=== PATIENT | female | born 1935 | race Caucasian/White ===

== ENCOUNTER 2016-07-29 15:23 | Inpatient (IN) ==
--- NOTE | 2016-07-29 15:33 | Emergency Department Note ---
Disposition Clinical Impression: CVA (cerebral vascular accident), Frail elderly, History of hypertension, Osteopenia, Anemia, Kyphosis Disposition: Admitted As Inpatient Referrals: NO,PCP [Primary Care Provider] - Forms: ED Satisfaction Letter General Adult HPI - General Chief complaint: ED Neuro Symptoms/Deficit Stated complaint: "Abnormal MRI" Time Seen by Provider: 07/29/16 15:30 - History of Present Illness HPI Narrative: 80-year-old female reports to the ED with concerns for abnormal MRI brain suggestive of stroke. The patient reportedly has been being evaluated by her neurologist and was seen earlier in the week, an outpatient MRI of the brain was obtained today and showed changes so the patient was sent to the ED. The family reports that the patient has had a chronic shuffling gait and some imbalance in general for a significant period of time. They thought perhaps she had Parkinson's disease. There is no history of acute unilateral numbness or weakness of the arms or legs slurred speech or confusion. No history of convulsions trauma or fever. There is no history of chest pain shortness of breath and out pain vomiting diarrhea or acute injury secondary to fall although the patient has fallen a few times. There is no history of syncope leg swelling or pain or coughing up blood the patient is not anticoagulated at this time. They report the patient had a recent urinary tract infection. The patient still has some urinary frequency. There is no history of chest palpitations or pain or swelling of the extremities. - Related Data Allergies Allergy/AdvReac Type Severity Reaction Status Date / Time No Known Allergies Allergy Verified 07/29/16 15:32 All systems ED: reviewed and negative except as stated. Past Medical History - Past Medical History Medical history: Reports: hypertension Psychiatric history: Reports: no psych history - Social History Smoking Status: Never smoker Smokeless Tobacco Status: No Alcohol use: Reports: none Drug use: Reports: none Physical Exam - General Limitations: no limitations General appearance: alert, in no apparent distress - Head Head exam: atraumatic, normocephalic, normal inspection - Eye Eye exam: Present: normal appearance, PERRL, EOMI. Absent: scleral icterus, conjunctival injection, miosis, mydriasis - ENT ENT exam: normal exam, normal oropharynx, mucous membranes moist, TM's normal bilaterally, normal external ear exam - Neck Neck exam: Present: normal inspection, full ROM, trachea midline. Absent: tenderness - Chest Chest inspection: Present: symmetric chest wall rise. Absent: tenderness - Respiratory Respiratory exam: Present: normal lung sounds bilaterally. Absent: respiratory distress, wheezes, stridor, accessory muscle use, prolonged expiratory phase - Cardiovascular Cardiovascular exam: Present: regular rate, normal rhythm, normal heart sounds - Abdominal Exam Abdominal exam: Present: soft, Non-Tender, normal bowel sounds. Absent: tenderness, distention, guarding, rebound, rigidity - Rectal Exam Tile Shader present during exam: Yes (Female nursing present) Rectal exam: Present: normal rectal tone. Absent: decreased rectal tone, black stool, bloody stool, fecal impaction - Female Tile Shader present during exam: Yes - Extremities Exam Extremities exam: Present: normal inspection, full ROM, normal capillary refill. Absent: tenderness, pedal edema, joint swelling, calf tenderness - Expanded Lower Extremity Exam Lower leg exam: Absent: Homans' sign Neurovascular/Tendon exam: Present: normal capillary refill. Absent: motor deficit, sensory deficit, tendon deficit, extremity cold to touch, pallor - Back Exam Back exam: Present: normal inspection, full ROM. Absent: tenderness, CVA tenderness (R), CVA tenderness (L), vertebral tenderness - Neurological Exam Neurological exam: Present: alert, oriented X3, CN II-XII intact. Absent: motor sensory deficit - Psychiatric Psychiatric exam: Present: normal affect, normal mood - Skin Skin exam: Present: warm, dry, intact, normal color. Absent: rash, cyanosis, diaphoresis, erythema, pallor, mottled Course Vital Signs Temperature 97.6 F 07/29/16 15:55 Pulse Rate 93 07/29/16 15:55 Respiratory Rate 18 07/29/16 15:55 Blood Pressure 133/56 07/29/16 15:55 O2 Sat by Pulse Oximetry 96 07/29/16 15:55 Temperature 97.6 F 07/29/16 15:55 Pulse Rate 93 07/29/16 15:55 Respiratory Rate 18 07/29/16 15:55 Blood Pressure 133/56 07/29/16 15:55 O2 Sat by Pulse Oximetry 96 07/29/16 15:55 Oxygen Delivery Oxygen Delivery Nasal Cannula Medical Decision Making - MDM Narrative Medical decision making narrative: The patient appears to have had a subacute cerebral infarct. Aspirin was ordered in the ED. The patient's hemoglobin seems to be very low at 7.2. No previous available for comparison. Rectal exam shows no evidence of jayesh blood or blackened material. Fecal Hemoccult was sent. EKG nonacute. The patient appears to be stable. Based on the patient's apparent subacuteacute/ CVA significant anemia, I thought it would be appropriate to admit the patient to the hospital. I discussed the case with the hospitalist on-call who has accepted the patient to their care. The patient is currently stable. - Lab Data Lab results reviewed: Yes I reviewed the patient's lab results. Result diagrams: 07/29/16 15:46 07/29/16 15:46 Lab Results 07/29/16 07/29/16 07/29/16 Range/Units 15:46 15:46 15:46 WBC 5.8 (4.3-11.1) K/mcL RBC 3.01 L (3.82-4.97) M/mcL Hgb 7.2 L (11.5-15.4) g/dL Hct 24.4 L (35.3-44.9) % MCV 81.1 L (83.0-100.0) fL MCH 23.9 L (28.0-33.3) pg MCHC 29.5 L (31.6-35.5) g/dL RDW 17.0 H (11.5-14.5) % Plt Count 379 (140-400) K/mcL MPV 9.1 L (9.4-12.4) fL Immature Gran % 0.2 (0-4) % Seg Neutrophils % 51.7 % Lymphocytes % 38.6 % Monocytes % 7.4 % Eosinophils % 1.2 % Basophils % 0.9 % Neutrophils # 3.0 (1.6-8.9) K/mcL Lymphocytes # 2.2 (0.6-4.6) K/mcL Monocytes # 0.4 (0.0-1.3) K/mcL Eosinophils # 0.1 (0.0-0.6) K/mcL Basophils # 0.1 (0.0-0.2) K/mcL PT 10.1 (9.4-12.1) Seconds INR 0.9 Sodium 136 (136-145) mEq/L Potassium 3.7 (3.5-4.5) mEq/L Chloride 105 (98-109) mEq/L Carbon Dioxide 23 (19-29) mEq/L BUN 21 H (7-20) mg/dL Creatinine 0.81 (0.57-1.11) mg/dL Est GFR ( Amer) > 60 (> 60) Est GFR (Non-Af Amer) > 60 (> 60) BUN/Creatinine Ratio 26 (6-26) Glucose 94 (70-99) mg/dL Calculated Osmolality 285 (280-300) Calcium 8.1 L (8.6-10.8) mg/dL Magnesium 1.6 (1.6-2.6) mg/dL Total Bilirubin 0.4 (0.2-1.2) mg/dL Direct Bilirubin 0.2 (0.0-0.5) mg/dL Indirect Bilirubin 0.2 (0.0-1.2) mg/dL AST 13 (5-34) Units/L ALT < 6 (0-55) Units/L Alkaline Phosphatase 121 (38-126) Units/L Troponin I (0-0.03) ng/mL Serum Total Protein 6.4 (6.0-8.3) g/dL Albumin 2.8 L (3.5-5.0) g/dL Globulin 3.6 H (2.4-3.5) g/dL Albumin/Globulin Ratio 0.8 L (1.1-2.2) 07/29/16 Range/Units 15:46 WBC (4.3-11.1) K/mcL RBC (3.82-4.97) M/mcL Hgb (11.5-15.4) g/dL Hct (35.3-44.9) % MCV (83.0-100.0) fL MCH (28.0-33.3) pg MCHC (31.6-35.5) g/dL RDW (11.5-14.5) % Plt Count (140-400) K/mcL MPV (9.4-12.4) fL Immature Gran % (0-4) % Seg Neutrophils % % Lymphocytes % % Monocytes % % Eosinophils % % Basophils % % Neutrophils # (1.6-8.9) K/mcL Lymphocytes # (0.6-4.6) K/mcL Monocytes # (0.0-1.3) K/mcL Eosinophils # (0.0-0.6) K/mcL Basophils # (0.0-0.2) K/mcL PT (9.4-12.1) Seconds INR Sodium (136-145) mEq/L Potassium (3.5-4.5) mEq/L Chloride (98-109) mEq/L Carbon Dioxide (19-29) mEq/L BUN (7-20) mg/dL Creatinine (0.57-1.11) mg/dL Est GFR ( Amer) (> 60) Est GFR (Non-Af Amer) (> 60) BUN/Creatinine Ratio (6-26) Glucose (70-99) mg/dL Calculated Osmolality (280-300) Calcium (8.6-10.8) mg/dL Magnesium (1.6-2.6) mg/dL Total Bilirubin (0.2-1.2) mg/dL Direct Bilirubin (0.0-0.5) mg/dL Indirect Bilirubin (0.0-1.2) mg/dL AST (5-34) Units/L ALT (0-55) Units/L Alkaline Phosphatase (38-126) Units/L Troponin I 0.00 (0-0.03) ng/mL Serum Total Protein (6.0-8.3) g/dL Albumin (3.5-5.0) g/dL Globulin (2.4-3.5) g/dL Albumin/Globulin Ratio (1.1-2.2) - Radiology Data Radiology results reviewed: Yes I reviewed the patient's radiology results.
[2016-07-29 16:03] LABS: Basophils # 0.1 K/mcL (0.0-0.2); Basophils % 0.9 %; Eosinophils # 0.1 K/mcL (0.0-0.6); Eosinophils % 1.2 %; Hematocrit 24.4 % (35.3-44.9); Immature Granulocytes % 0.2 % (0-4); Lymphocytes # 2.2 K/mcL (0.6-4.6); Lymphocytes % 38.6 %; Mean Corpuscular HGB Conc 29.5 g/dL (31.6-35.5); Mean Corpuscular Hemoglobin 23.9 pg (28.0-33.3); Mean Corpuscular Volume 81.1 fL (83.0-100.0); Mean Platelet Volume 9.1 fL (9.4-12.4); Monocytes # 0.4 K/mcL (0.0-1.3); Monocytes % 7.4 %; Platelet Count 379 K/mcL (140-400); Red Blood Count 3.01 M/mcL (3.82-4.97); Segmented Neutrophils % 51.7 %
[2016-07-29 16:16] LABS: INR 0.9; Prothrombin Time 10.1 Seconds (9.4-12.1)
[2016-07-29 16:18] LABS: Albumin 2.8 g/dL (3.5-5.0); Albumin/Globulin Ratio 0.8 (1.1-2.2); Alkaline Phosphatase 121 Units/L (38-126); Aspartate Amino Transferase 13 Units/L (5-34); BUN/Creatinine Ratio 26 (6-26); Bilirubin,Direct 0.2 mg/dL (0.0-0.5); Bilirubin,Indirect 0.2 mg/dL (0.0-1.2); Bilirubin,Total 0.4 mg/dL (0.2-1.2); Blood Urea Nitrogen 21 mg/dL (7-20); Calcium 8.1 mg/dL (8.6-10.8); Carbon Dioxide 23 mEq/L (19-29); Chloride 105 mEq/L (98-109); Globulin 3.6 g/dL (2.4-3.5); Glucose 94 mg/dL (70-99); Magnesium 1.6 mg/dL (1.6-2.6); Osmolality,Calculated 285 (280-300); Potassium 3.7 mEq/L (3.5-4.5); Sodium 136 mEq/L (136-145); Total Protein 6.4 g/dL (6.0-8.3); eGFR For African Americans > 60 (> 60); eGFR For Non-African Americans > 60 (> 60)
[2016-07-29 16:20] LABS: Alanine Aminotransferase < 6 Units/L (0-55)
[2016-07-29 16:21] LABS: Hemoglobin 7.2 g/dL (11.5-15.4)
[2016-07-29 17:30] LABS: Bilirubin,Urine Negative (Negative); Blood,Urine Negative (Negative); Clarity,Urine Clear (Clear); Color,Urine Yellow (Yellow); Glucose,Urine (UA) Normal (Normal); Ketones,Urine Negative (Negative); Leukocyte Esterase,Urine Negative (Negative); Nitrite,Urine Negative (Negative); Protein,Urine Negative (Neg-Trace); Specific Gravity,Urine 1.009 (1.010-1.025); Urobilinogen,Urine Normal (Normal)
[2016-07-29] MEDS ORDERED: Naloxone 0.4 MG/ML INJ IVP PRN (17:51)
[2016-07-29] MEDS ORDERED: Acetaminophen 325 MG TABLET PO PRN (17:51)
--- NOTE | 2016-07-29 18:15 | Internal Med History&Physical ---
Date of Encounter: 07/29/16 Time of Encounter: 18:00 Assessment and Plan (1) CVA (cerebral vascular accident) Current visit: Yes Status: Suspected Patient with subacute/ acute CVA involving the right periventricular white matter. This could be causing her symptoms of disequilibrium and imbalance. We will workup for CVA with 2-D echocardiogram, carotid Dopplers, check A1c, check lipid panel. Treat with aspirin, statin. Neuro checks. DVT prophylaxis with subcutaneous heparin. Moderate risk for complications. PTOT evaluation. Qualifiers: CVA mechanism: thrombosis Precerebral and cerebral artery: unspecified cerebral artery Qualified Code(s): I63.30 - Cerebral infarction due to thrombosis of unspecified cerebral artery (2) Essential hypertension Current visit: Yes Status: Chronic Blood pressure is currently well controlled. (3) Anemia Current visit: Yes Status: Acute Uncertain etiology. Mild microcytosis. We will check iron profile, ferritin, folic acid and B12 levels. Stool is negative for occult blood. Patient did have negative colonoscopy 3 years back. No NSAID use. Qualifiers: Anemia type: other cause Other causes of anemia: other cause, not classified Qualified Code(s): D64.89 - Other specified anemias Internal Medicine - H&P: HPI Chief complaint: Instability with ambulation, generalized weakness Admitted From: Emergency Dept Plans for Post Hospital Care: Transfer Alf Facility History of present illness: Ms. Hodges is a 80 year old female patient with a history of essential hypertension who was sent to the ER after an abnormal MRI. She had been evaluated by neurology for episodes of falls, imbalance and generalized weakness for the past several weeks. An MRI was ordered as part of the workup. MRI showed a focal 1.3 cm acute/subacute infarct in the right periventricular white matter. As such she was advised to come to the ER. Patient denies any focal weakness or numbness. While she is lying down in bed she feels all right but when she is ambulating, she falls forwards according to her . Reviewing her records, she had also been evaluated for facial droop which seems to have subsided now. She denies any fever chills or night sweats. No bowel or bladder incontinence. No focal weakness. No speech difficulty. She denies any melena or hematochezia. No abdominal pain. No nausea or vomiting. Past Med Surg Social Fam HX - Past Medical History Attestation: Yes The following information was validated with the patient. Source: patient, old records reviewed, obtained from family Medical history: hypertension Psychiatric history: no psych history - Social History Smoking Status: Never smoker Smokeless Tobacco Status: No Alcohol use: none Drug use: none - Additional Family History Additional family history: Reviewed and found to be noncontributory at this time Internal Medicine - H&P: Meds Aspirin 81 mg PO DAILY 07/29/16 [History] Calcium Carbonate [Calcium] 1,000 mg PO DAILY 07/29/16 [History] Cyclobenzaprine [Flexeril] 10 mg PO HS 07/29/16 [History] Loratadine [Allergy Relief] 10 mg PO DAILY 07/29/16 [History] Losartan [Cozaar] 25 mg PO DAILY 07/29/16 [History] Omeprazole [PriLOSEC] 40 mg PO DAILY 07/29/16 [History] Allergies No Known Allergies Allergy (Verified 07/29/16 15:32) All Systems PM: A 10-system review of systems was performed and is negative for pertinent findings except as documented above in the HPI. - Constitutional Constitutional: weakness, no chills, no fever(s), no night sweats - EENT Eyes: no change in vision, no discharge, no pain, no photophobia Ears: no ear discharge, no ear pain, no tinnitus Nose, mouth and throat: no dysphagia, no nasal discharge, no neck pain, no sore throat - Cardiovascular Cardiovascular ROS IM: no chest pain, no diaphoresis, no dyspnea, no lightheadedness, no palpitations, no syncope - Respiratory Respiratory: no cough, no dyspnea, no wheezing, no excessive phlegm production - Gastrointestinal Gastrointestinal: no abdominal pain, no diarrhea, no hematemesis, no hematochezia, no melena, no nausea, no vomiting - Genitourinary Genitourinary: no change in urinary stream, no dysuria, no flank pain, no hematuria - Musculoskeletal Musculoskeletal ROS IM: no numbness, no tingling - Integumentary Integumentary IM: no rash, no unusual bruising - Neurological Neurological ROS: abnormal gait, disequilibrium, frequent falls, no confusion, no convulsions, no focal weakness, no numbness, no tingling, no tremor(s) - Hematologic/Lymphatic Hematologic/Lymphatic: no easy bruising - Constitutional Vitals: Temp Pulse Resp BP Pulse Ox 97.6 F 93 18 116/67 96 07/29/16 15:55 07/29/16 15:55 07/29/16 17:59 07/29/16 17:59 07/29/16 15:55 General appearance: Present: cooperative, A&O X 3, no acute distress, answers questions appropriately - Head Head exam: Present: atraumatic, normocephalic - Eye Eye exam: Present: EOMI, PERRL, conjuntiva pink, sclera anicteric - Neck Neck exam general surgery: Present: supple, trachea midline. Absent: lymphadenopathy - Respiratory Respiratory exam: Present: CTAB. Absent: accessory muscle use, rales, rhonchi, wheezes - Cardiovascular Cardiovascular exam: Present: RRR, +S1, +S2. Absent: diastolic murmur, gallop, rubs, systolic murmur - GI/Abdominal GI/Abdominal exam: Present: normal bowel sounds, soft, no peritoneal signs. Absent: distended, tenderness - Extremities Exam Extremities exam: Present: warm, radial pulses palpable and symetrical. Absent : calf tenderness, cyanotic, pedal edema - Neurological Exam Neurological exam: Present: alert, CN II-XII intact, oriented X3, no focal deficits, strengths equal and symetr throughout. Absent: pronater drift, facial droop, speech deficit Additional comments: Gait not tested at this time - Skin Skin exam: Present: dry, intact, pallor Internal Med - H&P Results - Labs CBC & Chem 7: 07/29/16 15:46 07/29/16 15:46
[2016-07-29] MEDS ORDERED: 0.9 % Sodium Chloride 1,000 ML IVC SCH (18:30)
[2016-07-29 18:53] LABS: C-Reactive Protein 1 mg/L (Less than 5)
[2016-07-30 00:58] LABS: Hemoglobin A1C 6.1 %
[2016-07-30] MEDS: *HR* Heparin 5,000 UNIT/ML VIAL SQ SCH ×2 (05:49→17:50)
[2016-07-30 06:53] LABS: Basophils # 0.1 K/mcL (0.0-0.2); Basophils % 1.1 %; Eosinophils # 0.2 K/mcL (0.0-0.6); Eosinophils % 2.9 %; Hematocrit 24.2 % (35.3-44.9); Hemoglobin 7.2 g/dL (11.5-15.4); Immature Granulocytes % 0.4 % (0-4); Lymphocytes # 2.2 K/mcL (0.6-4.6); Mean Corpuscular HGB Conc 29.8 g/dL (31.6-35.5); Mean Corpuscular Hemoglobin 24.2 pg (28.0-33.3); Mean Corpuscular Volume 81.5 fL (83.0-100.0); Mean Platelet Volume 9.4 fL (9.4-12.4); Monocytes # 0.4 K/mcL (0.0-1.3); Monocytes % 6.9 %; Neutrophils # 2.7 K/mcL (1.6-8.9); Platelet Count 385 K/mcL (140-400); Red Blood Count 2.97 M/mcL (3.82-4.97); Red Cell Distribution Width 17.2 % (11.5-14.5); Segmented Neutrophils % 48.7 %
[2016-07-30 07:07] LABS: BUN/Creatinine Ratio 19 (6-26); Blood Urea Nitrogen 14 mg/dL (7-20); Calcium 8.2 mg/dL (8.6-10.8); Carbon Dioxide 23 mEq/L (19-29); Chloride 107 mEq/L (98-109); Chol/HDL Ratio 4.7 (0-4.9); Cholesterol 247 mg/dL (< 200); Glucose 79 mg/dL (70-99); HDL Cholesterol 53 mg/dL (40-59); LDL Cholesterol,Calculated 157 mg/dL (0-99); Lactate Dehydrogenase 192 Units/L (159-327); Osmolality,Calculated 283 (280-300); Potassium 3.7 mEq/L (3.5-4.5); Sodium 137 mEq/L (136-145); Triglycerides 186 mg/dL (< 150); eGFR For African Americans > 60 (> 60); eGFR For Non-African Americans > 60 (> 60)
[2016-07-30 08:45] LABS: % Iron Saturation 5 % (15-50); Iron 18 mcg/dL (50-170); Transferrin 278 mg/dL (180-382)
[2016-07-30 08:56] LABS: Folate 9.6 ng/mL (7.0-31.4)
[2016-07-30] MEDS ORDERED: Aspirin Enteric Coated 81 MG Tablet PO SCH (09:00)
[2016-07-30 09:05] LABS: Ferritin 14 ng/ml (5-204)
[2016-07-30] MEDS: Loratadine 10 MG TABLET PO SCH (09:08)
--- NOTE | 2016-07-30 10:51 | Neurology - Consult Note ---
Date of Encounter: 07/30/16 Time of Encounter: 10:46 Assessment and Plan (1) CVA (cerebral vascular accident) Current Visit: Yes Status: Suspected Patient developed right periventricular white matter lacunar infarct, likely secondary to small vessel etiology. was taking aspirin 81mg daily iin the past and will increase to full strength aspirin. Will obtain stroke work up including carotid artery duplex and echocardiography. Continue statin therapy. Permissive BP treatment during acute phase 7-10 days after CVA. Qualifiers: CVA mechanism: thrombosis Precerebral and cerebral artery: unspecified cerebral artery Qualified Code(s): I63.30 - Cerebral infarction due to thrombosis of unspecified cerebral artery (2) Parkinson disease Current Visit: Yes Status: Acute Does have Parkinson features and patient may benefit from restarting dopa therapy in the future. she is to follow up with Dr. Frandy Calderón 2-3 weeks after discharge for that particular matter. Please continue medical and supportive care. History of Present Illness Chief complaint: CVA HPI: Ms. Hodges is a 80 year old female with PMH significant for HTN, hyperlipidemia, newly diagnosed unspecified type of Parkinson's disease who was found to have left facial droop and sent for an MRI of brain which came back showing a new cerebral infarct at the right periventricular white matter. Patient saw Dr. Frandy Calderón on 07/26/2016, who thought the patient has parkinsonsism and also found her to have slight left facial droop. Ordered an MRI of brain without contrast which showed above finding. Admitted for stroke work up. She tried two pills of sinemet. She is currently off sinemet. No significant focal weakness. Vitals are within normal range, no specific complaints Past Med Surg Social Fam HX - Past Medical History Medical history: hypertension Psychiatric history: no psych history - Social History Smoking Status: Never smoker Smokeless Tobacco Status: No Alcohol use: none Drug use: none - Family History Mother Name: miguelina Family Member Ethnicity: Non- Living Status: Age at : 46 Cause of : cva Hx Family Neurologic Disorders: Yes Medications and Allergies Aspirin 81 mg PO DAILY 07/29/16 [History] Calcium Carbonate [Calcium] 1,000 mg PO DAILY 07/29/16 [History] Cyclobenzaprine [Flexeril] 10 mg PO HS 07/29/16 [History] Loratadine [Allergy Relief] 10 mg PO DAILY 07/29/16 [History] Losartan [Cozaar] 25 mg PO DAILY 07/29/16 [History] Omeprazole [PriLOSEC] 40 mg PO DAILY 07/29/16 [History] Allergies No Known Allergies Allergy (Verified 07/29/16 15:32) All Systems: A 10-system review of systems was performed and is negative for pertinent findings except as documented above in the HPI. Physical Examination - Vital Signs Vital Signs: Initial Vital Signs Temp Pulse Resp BP Pulse Ox 97.6 F 93 18 133/56 96 07/29/16 15:55 07/29/16 15:55 07/29/16 15:55 07/29/16 15:55 07/29/16 15:55 - Constitutional General appearance: comfortable - Neurologic Sensorimotor examination: intact Detailed motor examination: full strength in all major muscle groups Motor examination - right side: 5/5: deltoids, biceps, triceps, wrist flexion, wrist extension, meter installer and remover, hip flexors, tibialis Anterior, quadriceps, toe extension (EHL), plantarflexion Motor examination - left side: 5/5: deltoids, biceps, triceps, wrist flexion, wrist extension, hip flexors, meter installer and remover, quadriceps, tibialis Anterior, toe extension (EHL), plantarflexion Detailed sensory examination: intact Posture: other (none) Reflex and gait examination: other (Muscle tone are increased bilaterally. Slightly bradykinetic. Gait not assessed) Reflexes: Biceps: 2+, Triceps: 2+, Brachioradialis: 2+, Patella: 2+, Achilles: 2 + Mental Status Examination: awake, alert, oriented to person, oriented to place, oriented to time, follows commands appropriately, answers questions appropriately, no agnosia, no aphasia, no aproxia Cranial nerve examination: PERRL, EOMI, visual fink intact, corneal reflexes brisk symmetrically, sensory to face intact, mastication intact, no facial asymmetry is present, no dysarthria, hearing is intact symmetrically, soft palate elevates bilaterally upon phonation, gag reflex intact, flexes SCM and trapezius muscles symmetrically with full power, tongue protrudes midline, no atrophy or facial fasiculations present Results - Laboratory Findings CBC and BMP: 07/30/16 06:34 07/30/16 06:34 Abnormal lab findings: Abnormal lab results RBC 2.97 M/mcL (3.82-4.97) L 07/30/16 06:34 Hgb 7.2 g/dL (11.5-15.4) L 07/30/16 06:34 Hct 24.2 % (35.3-44.9) L 07/30/16 06:34 MCV 81.5 fL (83.0-100.0) L 07/30/16 06:34 MCH 24.2 pg (28.0-33.3) L 07/30/16 06:34 MCHC 29.8 g/dL (31.6-35.5) L 07/30/16 06:34 RDW 17.2 % (11.5-14.5) H 07/30/16 06:34 Hemoglobin A1c 6.1 % (-5.6) H 07/29/16 15:46 Calcium 8.2 mg/dL (8.6-10.8) L 07/30/16 06:34 Iron 18 mcg/dL (50-170) L 07/30/16 06:34 % Saturation 5 % (15-50) L 07/30/16 06:34 Albumin 2.8 g/dL (3.5-5.0) L 07/29/16 15:46 Globulin 3.6 g/dL (2.4-3.5) H 07/29/16 15:46 Albumin/Globulin Ratio 0.8 (1.1-2.2) L 07/29/16 15:46 Triglycerides 186 mg/dL (< 150) H 07/30/16 06:34 Cholesterol 247 mg/dL (< 200) H 07/30/16 06:34 LDL Cholesterol, Calc 157 mg/dL (0-99) H 07/30/16 06:34 VLDL Cholesterol, Calc 37 mg/dL (< 31) H 07/30/16 06:34 Vitamin B12 150 pg/mL (213-816) L 07/30/16 06:34 Ur Specific [place] 1.009 (1.010-1.025) L 07/29/16 17:21 Consult Discharge Plan - Plan Referrals: Guru Currie DO [Primary Care Provider] -
--- NOTE | 2016-07-30 11:51 | Internal Med Progress Note ---
Date of Encounter: 07/30/16 Time of Encounter: 11:15 - Assessment and plan (1) CVA (cerebral vascular accident) Current Visit: Yes Status: Suspected Assessment and plan: Neurology evaluation appreciated awaiting stroke work up f/u 2D echo, carotid dopplers f/u speech therapy eval PT eval recommended home health, social sciences professor consulted for home health arrangement d/c in am if above work up is negative closely monitor BP increased ASA to 325mg PO qd as per neurologist's recommendations Qualifiers: CVA mechanism: thrombosis Precerebral and cerebral artery: unspecified cerebral artery Qualified Code(s): I63.30 - Cerebral infarction due to thrombosis of unspecified cerebral artery (2) Frail elderly Current Visit: Yes Status: Acute Assessment and plan: will benefit from physical therapy (3) Anemia Current Visit: Yes Status: Acute Assessment and plan: H&H low but acceptable no acute bleeding reported at this time iron studies consistent with iron deficiency anemia will start iron supplementation closely monitor H&H Qualifiers: Anemia type: other cause Other causes of anemia: other cause, not classified Qualified Code(s): D64.89 - Other specified anemias (4) Essential hypertension Current Visit: Yes Status: Chronic Assessment and plan: BP within acceptable range continue home medications (5) Parkinson disease Current Visit: Yes Status: Chronic Assessment and plan: continue home meds (6) DVT prophylaxis Current Visit: Yes Status: Acute Assessment and plan: Heparin sQ - Subjective Interval history: Patient seen and examined with present at bedside. Patient reports of feeling better at this time but just weak. however is rude and agitated towards the staff. He refused echo study this morning because the patient was eating breakfast and at this time is angry that the echo has not been done. Pt denies any discomfort at this time. - Constitutional Vitals: Temp Pulse Resp BP Pulse Ox 97.6 F 87 16 136/53 99 07/30/16 06:00 07/30/16 06:00 07/30/16 06:00 07/30/16 06:00 07/30/16 06:00 General appearance: Present: cooperative, A&O X 3, no acute distress, answers questions appropriately - Head Head exam: Present: atraumatic, normocephalic - Respiratory Respiratory exam: Absent: respiratory distress, wheezes - Cardiovascular Cardiovascular exam: Present: RRR, +S1, +S2. Absent: diastolic murmur, gallop, rubs, systolic murmur - GI/Abdominal GI/Abdominal exam: Present: normal bowel sounds, soft, no peritoneal signs. Absent: distended, tenderness - Extremities Exam Extremities exam: Present: warm, radial pulses palpable and symetrical. Absent : calf tenderness, pedal edema - Neurological Exam Neurological exam: Present: alert, oriented X3 Internal Medicine: Result - Labs CBC & Chem 7: 07/30/16 06:34 07/30/16 06:34 Labs: Short CBC 07/30/16 Range/Units 06:34 WBC 5.5 (4.3-11.1) K/mcL Hgb 7.2 L (11.5-15.4) g/dL Hct 24.2 L (35.3-44.9) % Plt Count 385 (140-400) K/mcL Neutrophils # 2.7 (1.6-8.9) K/mcL BMP 07/30/16 06:34 Sodium 137 Potassium 3.7 Chloride 107 Carbon Dioxide 23 BUN 14 Creatinine 0.74 Glucose 79 Calcium 8.2 L - ABG Interpretation ABG results: PT/INR, D-dimer PT 10.1 Seconds (9.4-12.1) 07/29/16 15:46 - VTE Documentation of Mechanical Device: Intermittent pneumatic compression device Consult Discharge Plan - Plan Referrals: Guru Currie DO [Primary Care Provider] -
[2016-07-31] MEDS: *HR* Heparin 5,000 UNIT/ML VIAL SQ SCH (05:31)
[2016-07-31 06:56] LABS: Basophils % 0.4 %; Eosinophils # 0.2 K/mcL (0.0-0.6); Eosinophils % 3.2 %; Hematocrit 24.7 % (35.3-44.9); Hemoglobin 7.3 g/dL (11.5-15.4); Immature Granulocytes % 0.4 % (0-4); Lymphocytes % 37.9 %; Mean Corpuscular HGB Conc 29.6 g/dL (31.6-35.5); Mean Corpuscular Volume 81.3 fL (83.0-100.0); Mean Platelet Volume 9.5 fL (9.4-12.4); Monocytes # 0.3 K/mcL (0.0-1.3); Monocytes % 6.2 %; Neutrophils # 2.8 K/mcL (1.6-8.9); Platelet Count 382 K/mcL (140-400); Red Blood Count 3.04 M/mcL (3.82-4.97); Segmented Neutrophils % 51.9 %
[2016-07-31 07:10] LABS: BUN/Creatinine Ratio 24 (6-26); Blood Urea Nitrogen 17 mg/dL (7-20); Calcium 8.4 mg/dL (8.6-10.8); Carbon Dioxide 23 mEq/L (19-29); Chloride 106 mEq/L (98-109); Glucose 94 mg/dL (70-99); Magnesium 1.7 mg/dL (1.6-2.6); Osmolality,Calculated 287 (280-300); Phosphorous 3.6 mg/dL (2.3-4.7); Potassium 3.9 mEq/L (3.5-4.5); Sodium 138 mEq/L (136-145); eGFR For African Americans > 60 (> 60); eGFR For Non-African Americans > 60 (> 60)
[2016-07-31 07:46] VITALS: BP 143/62
[2016-07-31] MEDS ORDERED: Aspirin Enteric Coated 81 MG Tablet PO SCH (09:00)
[2016-07-31] MEDS: Loratadine 10 MG TABLET PO SCH (09:17)
--- NOTE | 2016-07-31 09:31 | Electrocardiograph Report ---
[address] [address] Test Date: 2016-07-29 Pat Name: Theresa Hodges Department: 102 Room: [facility] Gender: F Marine Pilot: : [id number] Requested By: Grant Mir Order Number: [id number] Reading MD: Serene Schrader Measurements Intervals Excel Rate: 92 P: 26 MO: 149 QRS: 16 QRSD: 85 T: 58 QT: 383 QTc: 432 Interpretive Statements SINUS RHYTHM Electronically Signed On 07-31-2016 9:29:41 EDT by Serene Schrader
--- NOTE | 2016-07-31 11:45 | Discharge Summary ---
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 Ferrous Sulfate 325 mg PO DAILY@0800 #30 tablet Sennosides/Docusate Sodium [Senna Plus] 1 each PO DAILY #30 tablet Home Medications: Calcium Carbonate [Calcium] 1,000 mg PO DAILY 07/29/16 [History] Cyclobenzaprine [Flexeril] 10 mg PO HS 07/29/16 [History] Loratadine [Allergy Relief] 10 mg PO DAILY 07/29/16 [History] Losartan [Cozaar] 25 mg PO DAILY 07/29/16 [History] Omeprazole [PriLOSEC] 40 mg PO DAILY 07/29/16 [History] Aspirin Enteric Coated [Aspirin EC] 325 mg PO DAILY #30 tablet. 07/31/16 [Rx] Ferrous Sulfate 325 mg PO DAILY@0800 #30 tablet 07/31/16 [Rx] Sennosides/Docusate Sodium [Senna Plus] 1 each PO DAILY #30 tablet 07/31/16 [Rx] Allergies/Adverse Reactions: Allergies No Known Allergies Allergy (Verified 07/29/16 15:32) Procedures/tests Complete & Pending: Procedures Performed prior 72 hours Category Date Time Status EV carotid duplex imaging BI Routine Y 07/30/16 18:13 Completed EV echocardiogram Routine Y 07/30/16 18:13 Completed Date of admission: 07/29/16 17:36 Primary care physician: Sudarshan Lui Consults: 07/29/16 17:53 Consult to Occupational Therapy [CONS] Routine Comment: Evaluate, develop and implement POC Reason for Consult: CVA Consult to Physical Therapy [CONS] Routine Comment: Evaluate, develop and implement POC Reason for Consult: CVA 07/29/16 19:00 Consult to Nutrition [CONS] Routine Comment: Consulting Provider: NUTRITION Reason for Dietary Consult: Other 07/30/16 07:59 Consult to Neurology [CONS] Routine Consulting Provider: Neurology [facility] Reason for Consult: CVA Call Completed: Yes 07/30/16 11:00 Consult to Speech Therapy [CONS] Routine Comment: Evaluate, develop and implement POC Reason for Consult: sneezing, runny nose while eating Call Completed: No 07/30/16 11:48 Consult to [facility] [CONS] Routine Reason for SW Consult: home health services set up Discharging clinician: Becki Kirby Anticipated date of discharge: 07/31/16 - Patient Status Disposition: Home Health Service Condition: Good Functional capacity at discharge: uses cane/walker Overall status at discharge: patient is back to baseline - Discharge Instructions Follow Up With: Guru Currie DO [Primary Care Provider] - Additional Instructions: Please follow up with your primary care physician and neurologist within one week after your discharge from the hospital. Your home dose of Aspirin has been increased to 325mg once a day. You were noted to have iron deficiency due to which you were started on iron supplement. Iron supplement can cause constipation therefore a stool softener ( Senna plus) was also added to your home meds. Please take these medications as prescribe. Please resume all your home medications as prescribed by your primary care physician. - Diet and Activity Activity: as per physical therapy Diet: low salt diet Hospital course: Ms. Hodges is a 80 year old female with PMH of HTN, anemia who was admitted for concerning MRI head findings for CVA. She was evaluated by neurology and underwent stroke work up. Her carotid dopplers were negative for any stenosis and echo cardiogram was negative for any valvular dysfunction. Her home dose of ASA was increased to 325mg once a day as per neurologist recommendations. She was also noted to have iron deficiency anemia for which she was started on iron supplementation. She was evaluated by physical therapy and home health was recommended. At this time, patient is hemodynamically stable and will be discharged to home with home health. She is to follow up with PCP and neurology after discharge. Patient and family(present at bedside) demonstrate understanding of her diagnosis and agree with the discharge care and plan. - Time Spent with Patient Total time spent providing and/or coordinating discharge services: Less than 30 minutes - Constitutional Vitals: Temp Pulse Resp BP Pulse Ox 97.5 F L 85 16 143/62 96 07/31/16 07:30 07/31/16 07:30 07/31/16 07:30 07/31/16 07:30 07/31/16 07:30 General appearance: Present: cooperative, A&O X 3, no acute distress, answers questions appropriately - Head Head exam: Present: atraumatic, normocephalic - Eye Eye exam: Present: normal appearance, conjuntiva pink, sclera anicteric - Respiratory Respiratory exam: Present: CTAB. Absent: accessory muscle use, rales, rhonchi, wheezes - Cardiovascular Cardiovascular exam: Present: RRR, +S1, +S2. Absent: diastolic murmur, gallop, rubs, systolic murmur - GI/Abdominal GI/Abdominal exam: Present: normal bowel sounds, soft, no peritoneal signs. Absent: distended, tenderness - Extremities Exam Extremities exam: Present: warm, radial pulses palpable and symetrical. Absent : calf tenderness, cyanotic, pedal edema - Neurological Exam Neurological exam: Present: alert, oriented X3 - Psychiatric Psychiatric exam: Present: normal affect, normal mood - VTE Documentation of Mechanical Device: Intermittent pneumatic compression device
--- NOTE | 2016-07-31 11:58 | Physician Discharge Referral ---
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 For more information, call the [place] Tobacco Quit Line at 1-236-MYKB-NOW. - Services Needed Following services are medically necessary services: Nursing, Home Health Aide, Physical Therapy, Occupational Therapy - Transfer Medications Prescriptions: Aspirin Enteric Coated [Aspirin EC] 325 mg PO DAILY #30 tablet. Ferrous Sulfate 325 mg PO DAILY@0800 #30 tablet Sennosides/Docusate Sodium [Senna Plus] 1 each PO DAILY #30 tablet Home Medications: Calcium Carbonate [Calcium] 1,000 mg PO DAILY 07/29/16 [History] Cyclobenzaprine [Flexeril] 10 mg PO HS 07/29/16 [History] Loratadine [Allergy Relief] 10 mg PO DAILY 07/29/16 [History] Losartan [Cozaar] 25 mg PO DAILY 07/29/16 [History] Omeprazole [PriLOSEC] 40 mg PO DAILY 07/29/16 [History] Aspirin Enteric Coated [Aspirin EC] 325 mg PO DAILY #30 tablet. 07/31/16 [Rx] Ferrous Sulfate 325 mg PO DAILY@0800 #30 tablet 07/31/16 [Rx] Sennosides/Docusate Sodium [Senna Plus] 1 each PO DAILY #30 tablet 07/31/16 [Rx] Allergies/Adverse Reactions: Allergies No Known Allergies Allergy (Verified 07/29/16 15:32) Certification: Further, I certify that my clinical findings support that this patient is homebound (i.e. absences from home require considerable and taxing effort and are for medical reasons or jewish services or infrequently or short duration when for other reasons) because: Homebound Reason: Patient requires assistance of a person or device to safely leave home Attestation: My signature below is to certify that this patient is under my care and that I, or nurse practitioner, or a physician's mechanic assistant working with me, has a face-to -face encounter with this patient.
--- NOTE | 2016-08-01 15:47 | Carotid Imaging Report ---
Carotid Duplex Patient Name:Theresa Hodges Order Number:[id number] Procedure Date:07/30/2016 Date:8Age:80 yrs Gender:Female Lt BP:136 / 53 mmHg Rt.BP:130 / 50 mmHgHeart Rate: Location:[facility] Room #: 2NE33 Registry Np:Chelle Meyer Referring MD:Ramon Perera MD c t tech:DO Rajan Lui MD:Gonzalez Sepulveda MD Primary Indications:CVA Risk Factors Yes/No Hypertension Yes Hypercholesterolemia Yes Impressions: The right internal carotid artery has a 40-59% stenosis. The left internal carotid artery has a 60-79% stenosis. Recommendations: Risk factor reduction. Further evaluation recommended if clinically indicated. Follow-up carotid duplex in 1 year. After imaging the patient returned to their room. Findings Carotid Duplex: Right: There is nonstenotic plaque in the right proximal common carotid artery with a PSV of 72 cm/s and a EDV of 18 cm/s. There is nonstenotic plaque in the right mid common carotid artery with a PSV of 79 cm/s and a EDV of 17 cm/s. The right distal common carotid artery has a PSV of 66 cm/s and a EDV of 16 cm/s. There is nonstenotic plaque in the right bifurcation with a PSV of 80 cm/s and a EDV of 17 cm/s. There is nonstenotic plaque in the right proximal internal carotid artery with a PSV of 101 cm/s and a EDV of 30 cm/s. There is 40-59% stenosis in the right mid internal carotid artery with a PSV of 124 cm/s and a EDV of 40 cm/s. The right distal internal carotid artery has a PSV of 111 cm/s and a EDV of 29 cm/s. The right eca has a PSV of 120 cm/s and a EDV of 8 cm/s. The right vertebral artery has a PSV of 55 cm/s and a EDV of 7 cm/s. Left: The left proximal common carotid artery has a PSV of 131 cm/s and a EDV of 40 cm/s. The left mid common carotid artery has a PSV of 111 cm/s and a EDV of 23 cm/s. The left distal common carotid artery has a PSV of 101 cm/s and a EDV of 29 cm/s. There is nonstenotic plaque in the left bifurcation with a PSV of 123 cm/s and a EDV of 31 cm/s. The left proximal internal carotid artery has a PSV of 119 cm/s and a EDV of 39 cm/s. There is 60-79% stenosis in the left mid internal carotid artery with a PSV of 146 cm/s and a EDV of 42 cm/s. There is 40-59% stenosis in the left distal internal carotid artery with a PSV of 133 cm/s and a EDV of 47 cm/s. The left eca has a PSV of 104 cm/s and a EDV of 9 cm/s. The left vertebral artery has a PSV of 63 cm/s and a EDV of 19 cm/s. Prior Study: No prior study available for comparison. Carotid Results Right PSV EDV Assessment Proximal CCA 72 18 Non Stenotic Plaque Mid CCA 79 17 Non Stenotic Plaque Distal CCA 66 16 Normal Bifurcation 80 17 Non Stenotic Plaque Proximal ICA 101 30 Non Stenotic Plaque Mid ICA 124 40 40-59% stenosis Distal ICA 111 29 Normal ECA 120 8 Normal Vertebral Artery 55 7 Normal Left PSV EDV Assessment Proximal CCA 131 40 Normal Mid CCA 111 23 Normal Distal CCA 101 29 Normal Bifurcation 123 31 Non Stenotic Plaque Proximal ICA 119 39 Normal Mid ICA 146 42 60-79% stenosis Distal ICA 133 47 40-59% stenosis ECA 104 9 Normal Vertebral Artery 63 19 Normal Ratio's Right ICA/CCA Ratio: 1.57 ICA/CCA Values: 124/79 Left ICA/CCA Ratio: 1.32 ICA/CCA Values: 146/111 Updated by Gonzalez Sepulveda MD on 08/01/2016 3:42:32 PM electronically signed on 08/01/2016 3:43:14 PM with status of Final
== END 2016-07-31 13:20 | disposition home health service (06) | DRG 66 ==
LOC: EMEROO 15:23 → 2NENU 15:23
PROVIDERS: ADMIT Nurse Practitioner Family; ATTEND Internal Medicine